=== PATIENT | male | born 1960 | race Caucasian/White ===

== ENCOUNTER → 2016-10-18 | Outpatient (CLI) | payer BC | LOC: RAD 08:00 | DX: K21.9 Gastro-esophageal reflux disease without esophagitis (principal); K44.9 Diaphragmatic hernia without obstruction or gangrene; K22.8 Other specified diseases of esophagus | CPT/HCPCS: 74246 ==

== ENCOUNTER → 2021-11-08 | Outpatient (CLI) | payer BC | LOC: KOH-I 13:50 | DX: Z87.891 Personal history of nicotine dependence (principal) | CPT/HCPCS: 71271 ==